=== PATIENT | male | born 1950 | race Caucasian/White ===

== ENCOUNTER 2016-07-29 16:09 | Outpatient (POV) ==
[2016-07-29 16:19] VITALS: BP 126/80; TEMP 98
[2016-07-29] MEDS ORDERED: VANCOMYCIN 1 GM in SODIUM CHLORIDE 250 ML IV STA (16:19)
== END 2016-07-29 18:05 | disposition home or self-care (01) ==
LOC: OUTPT 16:09
PROVIDERS: ATTEND General Practice
DX: L02.91 Cutaneous abscess, unspecified (principal)
CPT/HCPCS: 87070; 96365; 96366

== ENCOUNTER 2016-07-29 16:51 | Outpatient (CLI) | END 2016-07-29 16:52 | disposition home or self-care (01) | LOC: LAB 16:51 | PROVIDERS: ATTEND General Practice | DX: L02.91 Cutaneous abscess, unspecified (principal) | CPT/HCPCS: 87070 ==

== ENCOUNTER 2016-08-14 16:43 | Outpatient (CLI) | END 2016-08-14 16:44 | disposition home or self-care (01) | LOC: LAB 16:43 | PROVIDERS: ATTEND General Practice | DX: L02.91 Cutaneous abscess, unspecified (principal) | CPT/HCPCS: 87070 ==

== ENCOUNTER 2016-09-26 09:29 | Outpatient (CLI) ==
[2016-09-26 13:22] LABS: BASOPHILS # (AUTO) 0.1 K/uL (0-0.2); BASOPHILS % (AUTO) 0.8 % (0.0-3.0); EOSINOPHILS # (AUTO) 0.1 K/ul (0.0-0.7); HEMATOCRIT 47.2 % (42.0-52.0); HEMOGLOBIN 16.2 g/dl (14.0-18.0); IMMATURE GRANULOCYTE % (AUTO) 0.3 % (0.0-5.0); LYMPHOCYTES # (AUTO) 1.9 K/uL (0.60-3.4); LYMPHOCYTES % (AUTO) 26.1 (10.0-50.0); MEAN CORPUSCULAR HGB CONC 34.3 (31.8-35.4); MEAN CORPUSCULAR VOLUME 90.4 fl (80.0-94.0); MONOCYTES # (AUTO) 0.5 K/uL (0.4-2.0); MONOCYTES % (AUTO) 7.2 (0-10); NEUTROPHILS # (AUTO) 4.5 K/ul (2.0-6.9); NEUTROPHILS % (AUTO) 63.6; PLATELET COUNT 163 10^3/uL (140-440); RED BLOOD COUNT 5.22 10^6/ul (4.70-6.10); WHITE BLOOD COUNT 7.13 K/ul (4.2-10.2)
[2016-09-26 13:32] LABS: BILIRUBIN,URINE Negative (NEGATIVE); KETONES,URINE Negative (NEGATIVE); LEUKOCYTE ESTERASE ,URINE Negative (NEGATIVE); NITRITE,URINE Negative (NEGATIVE); PH,URINE 5.5 (5-9); PROTEIN,URINE Negative (NEGATIVE); URINE, BLOOD Negative (NEGATIVE)
[2016-09-26 13:33] LABS: ADD URINE MICROSCOPIC NO
[2016-09-26 13:39] LABS: ALBUMIN 3.8 g/dL (3.4-5.0); ALBUMIN/GLOBULIN RATIO 1.15; ANION GAP 12.2; BILIRUBIN,TOTAL 0.82 mg/dL (0.00-1.20); BUN/CREATININE RATIO 25.53; CALCIUM 9.1 mg/dL (8.2-10.2); CHOL/HDL RATIO 3.5 (4.5-6.4); CREATININE 0.94 mg/dL (0.60-1.10); POTASSIUM 4.2 mmol/L (3.5-5.1); TOTAL PROTEIN 7.1 g/dL (5.8-8.1)
== END 2016-09-26 09:30 | disposition home or self-care (01) ==
LOC: LAB 09:29
PROVIDERS: ATTEND General Practice
DX: E11.8 Type 2 diabetes mellitus with unspecified complications (principal); I10 Essential (primary) hypertension; Z12.5 Encounter for screening for malignant neoplasm of prostate; Z79.899 Other long term (current) drug therapy
CPT/HCPCS: 36415; 80053; 80061; 81001; 83036; 85025

== ENCOUNTER 2017-03-06 12:56 | Outpatient (CLI) ==
[2017-03-06 13:02] LABS: BASOPHILS # (AUTO) 0.1 K/uL (0-0.2); BASOPHILS % (AUTO) 1.1 % (0.0-3.0); EOSINOPHILS # (AUTO) 0.1 K/ul (0.0-0.7); HEMATOCRIT 48.6 % (42.0-52.0); HEMOGLOBIN 16.8 g/dl (14.0-18.0); IMMATURE GRANULOCYTE % (AUTO) 0.5 % (0.0-5.0); LYMPHOCYTES # (AUTO) 1.4 K/uL (0.60-3.4); LYMPHOCYTES % (AUTO) 21.5 (10.0-50.0); MEAN CORPUSCULAR HEMOGLOBIN 31.6 pg (27.0-31.0); MEAN CORPUSCULAR HGB CONC 34.6 (31.8-35.4); MEAN CORPUSCULAR VOLUME 91.5 fl (80.0-94.0); MONOCYTES # (AUTO) 0.5 K/uL (0.4-2.0); MONOCYTES % (AUTO) 6.8 (0-10); NEUTROPHILS # (AUTO) 4.5 K/ul (2.0-6.9); NEUTROPHILS % (AUTO) 68.1; PLATELET COUNT 200 10^3/uL (140-440); RED BLOOD COUNT 5.31 10^6/ul (4.70-6.10); WHITE BLOOD COUNT 6.61 K/ul (4.2-10.2)
[2017-03-06 13:05] LABS: BILIRUBIN,URINE Negative (NEGATIVE); KETONES,URINE Negative (NEGATIVE); LEUKOCYTE ESTERASE ,URINE Negative (NEGATIVE); NITRITE,URINE Negative (NEGATIVE); PROTEIN,URINE Negative (NEGATIVE); URINE, BLOOD Negative (NEGATIVE)
[2017-03-06 13:06] LABS: ADD URINE MICROSCOPIC NO
[2017-03-06 13:15] LABS: ALBUMIN 3.8 g/dL (3.4-5.0); ALBUMIN/GLOBULIN RATIO 1.12; ANION GAP 14.2; BILIRUBIN,TOTAL 0.82 mg/dL (0.00-1.20); BUN/CREATININE RATIO 16.84; CALCIUM 9.6 mg/dL (8.2-10.2); CHOL/HDL RATIO 3.3 (4.5-6.4); CREATININE 0.95 mg/dL (0.60-1.10); POTASSIUM 4.2 mmol/L (3.5-5.1); TOTAL PROTEIN 7.2 g/dL (5.8-8.1)
== END 2017-03-06 12:57 | disposition home or self-care (01) ==
LOC: LAB 12:56
PROVIDERS: ATTEND General Practice
DX: E11.8 Type 2 diabetes mellitus with unspecified complications (principal); I10 Essential (primary) hypertension; Z79.899 Other long term (current) drug therapy
CPT/HCPCS: 36415; 80053; 80061; 81001; 83036; 85025

== ENCOUNTER 2017-07-14 10:27 | Outpatient (CLI) | payer OTHER | END 2017-07-14 10:28 | disposition home or self-care (01) | LOC: FCC-LAB 10:27 | PROVIDERS: ATTEND General Practice | DX: E11.8 Type 2 diabetes mellitus with unspecified complications (principal); I10 Essential (primary) hypertension; Z79.899 Other long term (current) drug therapy | CPT/HCPCS: 36415; 80053; 80061; 81001; 83036; 85025 ==

== ENCOUNTER 2017-11-10 09:08 | Outpatient (CLI) | payer OTHER | END 2017-11-10 09:09 | disposition home or self-care (01) | LOC: FCC-LAB 09:08 | PROVIDERS: ATTEND General Practice | DX: E78.1 Pure hyperglyceridemia (principal); E11.8 Type 2 diabetes mellitus with unspecified complications; I10 Essential (primary) hypertension; Z79.899 Other long term (current) drug therapy; Z12.5 Encounter for screening for malignant neoplasm of prostate | CPT/HCPCS: 36415; 80053; 80061; 81001; 83036; 85025 ==

== ENCOUNTER 2018-04-05 11:36 | Outpatient (CLI) | payer OTHER | END 2018-04-05 11:37 | disposition home or self-care (01) | LOC: RHC-LAB 11:36 | PROVIDERS: ATTEND General Practice | DX: E78.1 Pure hyperglyceridemia (principal); I10 Essential (primary) hypertension; E11.8 Type 2 diabetes mellitus with unspecified complications; Z79.899 Other long term (current) drug therapy | CPT/HCPCS: 36415; 80053; 80061; 81001; 83036; 85025 ==

== ENCOUNTER 2018-08-09 08:13 | Outpatient (CLI) | payer OTHER | END 2018-08-09 08:14 | disposition home or self-care (01) | LOC: RHC-LAB 08:13 | PROVIDERS: ATTEND General Practice | DX: E78.1 Pure hyperglyceridemia (principal); I10 Essential (primary) hypertension; E11.8 Type 2 diabetes mellitus with unspecified complications; Z79.899 Other long term (current) drug therapy | CPT/HCPCS: 36415; 80053; 80061; 81001; 83036; 85025 ==